=== PATIENT | female | born 1990 | race Caucasian/White ===

== ENCOUNTER 2021-05-28 06:42 | Emergency (ER) | payer OTHER ==
[2021-05-28 07:42] LABS: RED BLOOD COUNT 4.46 M/UL (4.00-5.10); WHITE BLOOD COUNT 5.6 K/UL (4.5-11.0)
[2021-05-28 08:18] LABS: BUN/CREATININE RATIO 15 (0-10)
[2021-05-28] MEDS ORDERED: ZOFRAN4 MG PO (11:26)
[2021-05-28] MEDS ORDERED: BENTYL 20MG TAB20 MG PO (11:26)
== END 2021-05-28 11:45 | disposition home or self-care (01) ==
LOC: ER1 06:42
PROVIDERS: Physician Assistant
DX: R10.11 Right upper quadrant pain (principal); R11.2 Nausea with vomiting, unspecified
CPT/HCPCS: 76705; 80053; 81001; 82150; 83690; 84703; 85025; 93005; 96374; 96375; 99284; J2270; J2405